=== PATIENT | male | born 2005 | race Caucasian/White ===

== ENCOUNTER 2024-07-13 13:02 | Emergency (ER) | payer BC, SELFPAY ==
[2024-07-13 13:12] VITALS: BP 158/76
[2024-07-13 14:04] VITALS: BMI 21.8
[2024-07-13 14:19] VITALS: BP 146/76
--- NOTE | 2024-07-13 14:22 | ED.GENMED ---
History of Present Illness
General
Chief Complaint: Blood and Body Fluid Exposure
Source: patient
Exam Limitations: none
Time Seen by Provider: 07/13/24 14:14
History of Present Illness
History of Present Illness:
See MDM
Past History
Past History
ED Past Medical History: Psychiatric
ED Past Surgical History: None
Social History
Tobacco: Non-smoker
Alcohol: None
Phy Exam
Physical Exam
Physical Exam:
See MDM
Course
Orders/Labs/Results
Orders:
Orders
07/13/24 14:18
Pt has had a significant HIV exposure? Routine
HIV Exposure is significant?: Yes
Emtricitabine/Tenofovir [Truvada Tablet] 1 tablet PO NOW STA
Raltegravir Potassium [Isentress] 400 mg PO NOW STA
07/13/24 14:28
Comprehensive Metabolic Panel Urgent
07/13/24 14:29
Complete Blood Count/With Diff Urgent
HIV Combo Urgent
Hepatitis B Surface Antibody Urgent
Hepatitis B Surface Antigen Urgent
Hepatitis C Antibody Urgent
Abnormal Lab Results
07/13/24 07/13/24
14:28 14:29
RBC 4.51 L 10^6/uL
(4.70-6.10)
Absolute Neuts (auto) 6.6 H 10^3/uL
(1.4-6.5)
Absolute Lymphs (auto) 1.1 L 10^3/uL
(1.2-3.4)
Absolute Monos (auto) 1.5 H 10^3/uL
(0.1-0.6)
Lymphocytes % 12.1 L %
(20.5-51.1)
Monocytes % 16.3 H %
(1.7-9.3)
Glucose 103 H mg/dl
(70-99)
07/13/24 14:29
07/13/24 14:28
Vital Signs
Initial and Last Documented VS:
Initial Vital Signs
Temp Pulse Resp BP Pulse Ox
98.2 F 95 16 158/76 98
07/13/24 13:12 07/13/24 13:12 07/13/24 13:12 07/13/24 13:12 07/13/24 13:12
Last Documented Vital Signs
Temp Pulse Resp BP Pulse Ox
98.2 F 99 16 146/76 99
07/13/24 13:12 07/13/24 14:19 07/13/24 14:19 07/13/24 14:19 07/13/24 14:19
MDM/Problems Addressed
Differential Diagnosis Includes:
HPI and MDM Narrative:
18-year-old male presenting for significant HIV exposure. Patient received unprotected anal sex about 12 hours ago. The other participant did not use a condom and did ejaculate in his anus. Soon afterwards, patient found out that the other person
was HIV positive. Patient came in for prophylactic treatment
Physical exam
General: Well appearing and non-toxic
HEENT: protecting airway
Neck: appears supple
CV: No evidence of cyanosis
Resp: No accessory muscle use
Abd: Non-distended
Extremities: No deformities
Neuro: alert
Psych: Normal affect
Skin: Intact
Problems Addressed including Acute and Chronic Conditions affecting care:
1. Significant HIV exposure
Acuity: acute
Prognosis: stable
Details: Based on the story, will start Isentress and Truvada
Updates
I did prescribe interrogated her pacemaker Truvada and Isentress. However, the Isentress prescription is over $600 which is concerning for the patient. We spoke to the pharmacy and I did prescribe dolutegravir instead. However, it appears it is
out of stock to the patient's pharmacy until 2 days. Patient was already treated today. Patient feels comfortable taking that risk. However, I will also send him home with a paper prescription and patient states he will go to other pharmacies to
see if they have the prescription
Differential Diagnosis (but not limited to): HIV exposure, hepatitis exposure
Drug therapy (if applicable): OTC meds, please see d/c instruction regarding Rx drugs
Amount and/or Complexity of Data Reviewed
Clinical info obtained from: Patient
External data reviewed: N/A
Labs I independently reviewed (but not limited to): LFTs normal.
Radiology: N/A
Pulse Ox: not hypoxic
EKG independently reviewed: N/A
Car Loader: N/A
Critical Care: N/A
Risk of Complication:
Social Determinants of health: Good social support
Discussed with other providers: N/A
Escalation of Care includes Admit/Obs: After being observed in the Emergency Department, pt stable for discharge.
Occasional wrong word or 'sound a like' substitutions may have occurred due to the inherent limitations of voice recognition software. Read the chart carefully and recognize, using context, where substitutions have occurred.
*Critical Care Note
Total Time (30-74mins, 75-104mins- exclusive of procedures): Not Applicable
ED Attending Note
-
Portions of this chart may have been created with voice recognition software.� Occasional wrong word or��sound alike� substitutions may have occurred due to the inherent limitations of voice recognition software.
Discharge Plan
Departure
Patient Disposition: Home (Routine Discharge)
Date of Disposition: 07/13/24
Time of Disposition: 15:48
Patient with high blood pressure during this ER visit?: Yes
Discharge Problem:
Exposure to HIV
Instructions: BLOOD PRESSURE
Prescriptions:
New
emtricitabine-tenofovir (TDF) [Truvada] 200-300 mg tablet
1 tab PO DAILY Qty: 30 0RF
dolutegravir 50 mg tablet
50 mg PO DAILY Qty: 30 0RF
No Action
lamotrigine 25 mg Tablet
25 mg PO BID
hydroxyzine HCl 25 mg Tablet
25 mg PO HS
sertraline 50 mg Tablet
50 mg PO DAILY
Stand Alone Forms: Bl/Fluid Consent/Declination, Blood Body/Fluid Exposure
Activity Restrictions/Additional Instructions:
Please return for any worsening symptoms.
You may return at any time if you have further concerns.
Please follow up with your doctor at the first available appointment, preferably this week.
Thank you for choosing [facility].
Interventions
Interventions:
*Risk Screen - Suicide Last Done: 07/13/24 13:12
*General Assessment Last Done: 07/13/24 14:05
*Neglect/Abuse Screening Last Done: 07/13/24 13:12
*ED- Fall Risk Assessment Last Done: 07/13/24 14:05
*ED COVID-19 Vaccine History Last Done: 07/13/24 14:05
ED-Skin Assessment Last Done: 07/13/24 14:21
Discharge Date and Time
Print Language: LITHUANIAN
[2024-07-13] MEDS: ISENTRESS 400 MG PO (14:41)
[2024-07-13] MEDS: TRUVADA TABLET 1 TABLET PO (14:41)
[2024-07-13 14:42] LABS: % Basophils 0.4 % (0-2); % Eosinophils 0.4 % (0-6); % Immature Granulocytes 0.3 % (0-0.5); % Lymphocytes 12.1 % (20.5-51.1); % Monocytes 16.3 % (1.7-9.3); % Neutrophils 70.5 % (42.2-75.2); Absolute Lymphocytes 1.1 10^3/uL (1.2-3.4); Absolute Monocytes 1.5 10^3/uL (0.1-0.6); Absolute Neutrophils 6.6 10^3/uL (1.4-6.5); Hematocrit 40.2 % (39.0-52.0); Hemoglobin 13.6 g/dL (13.0-18.0); Mean Corp Hgb Conc. 33.8 g/dL (33.0-37.0); Mean Corpuscular Hgb 30.2 pg (27.0-31.0); Mean Corpuscular Volume 89.1 fL (80.0-94.0); Nucleated Red Blood Cells % 0 % (-); Platelet Count 209 10^3/uL (130-400); Red Blood Cell Count 4.51 10^6/uL (4.70-6.10); Red Cell Dist. Width 13.2 % (11.5-14.5); White Blood Cell Count 9.4 10^3/uL (4.8-10.8)
[2024-07-13 14:56] LABS: ALT (SGPT) 22 U/L (0-50); AST (SGOT) 21 U/L (17-59); Albumin 4.7 g/dl (3.5-5.0); Alkaline Phosphatase 88 U/L (38-126); Blood Urea Nitrogen 10 mg/dl (9-20); Calcium 9.9 mg/dl (8.4-10.2); Carbon Dioxide 28 mmol/L (22-30); Chloride 104 mmol/L (98-107); Estimated Creatinine Clearance > 125 ml/min; Glucose 103 mg/dl (70-99); Potassium 3.9 mmol/L (3.5-5.1); Sodium 141 mmol/L (135-145); Total Bilirubin 0.7 mg/dl (0.2-1.3); Total Protein 7.2 g/dl (6.3-8.2); eGFR > 60.00
[2024-07-13 16:17] LABS: Hepatitis B Surface Antigen Negative (Negative)
[2024-07-13 16:25] LABS: HIV Combo Negative (Negative)
[2024-07-13 16:33] LABS: Hepatitis B Surface Antibody Negative; Hepatitis C Antibody Negative (Negative)
== END 2024-07-13 15:52 | disposition home or self-care (01) ==
LOC: EMR 13:02
PROVIDERS: EMERGENCY PHYSICIAN Student in an Organized Health Care Education/Training Program; FAMILY PHYSICIAN Physician Assistant Medical
DX: Z20.6 Contact with and (suspected) exposure to human immunodeficiency virus [HIV] (principal)
CPT/HCPCS: 99283; 80053; 85025; 86706; 86803; 87340; 87389